=== PATIENT | male | born 1955 | race Caucasian/White ===

== ENCOUNTER 2021-07-06 10:23 | Day surgery (SDC) | payer MEDICARE, OTHER ==
[~2021-07-06] VITALS: Ht 175.3 cm; Wt 86.7 kg
[~2021-07-06 10:23] MED LIST: AMLO5 PO; Aspirin EC81 MG; CHLO25B; Crestor20 MG; EPCLUSA 400 MG1 EAC1; Flonase 0.05% N16 GM; LORZONE375 MG; LOSA50; MONT10T; PERCOCET 10-321 EAC1; Primalev 5-3001 EACH; TESTOSTERO200 MG/1 M
--- NOTE | 2021-07-06 11:56 | NUR ---
07/06/21 1156 Taco Asif BUPIVACAINE 0.5% 150 MLS MIXED W/ EPI 0.15 ML PER ORDER TO MAKE BUPIVACAINE 0.5% 1:200,000 FOR INJECTION AT OPSITE BY DR. JETER. 30 MLS INJECTED.
--- NOTE | 2021-07-06 14:42 | NUR ---
07/06/21 1442 Keri Villar PERCOCET 5/325MG PO GIVEN PER DR ORDERS AT 1350.
== END 2021-07-06 14:40 | disposition home or self-care (01) ==
LOC: ORSCSDS 10:23
PROVIDERS: Podiatrist Foot & Ankle Surgery
PROC: 0SGP04Z Fusion of Right Toe Phalangeal Joint with Internal Fixation Device, Open Approach (ICD-10-PCS; principal; 2021-07-06 11:30)
PROC: 0QSN04Z Reposition Right Metatarsal with Internal Fixation Device, Open Approach (ICD-10-PCS; principal; 2021-07-06 11:30)
DX: M19.071 Primary osteoarthritis, right ankle and foot (principal); M20.5X1 Other deformities of toe(s) (acquired), right foot; S93.104A Unspecified dislocation of right toe(s), initial encounter; M20.21 Hallux rigidus, right foot; I10 Essential (primary) hypertension; Z79.899 Other long term (current) drug therapy; Z79.82 Long term (current) use of aspirin
CPT/HCPCS: A9270; C1713; J0171; J0690; J1100; J2250; J2405; J2704; J3010; J7120

== ENCOUNTER → 2021-12-03 | Outpatient (CLI) | payer MEDICARE, OTHER ==
[2021-12-08 05:10] LABS: HSV-1 DNA Negative (Negative); HSV-2 DNA Negative (Negative)
== END | disposition home or self-care (01) ==
LOC: LAB SHORT 10:00
PROVIDERS: Physician Assistant Medical
DX: Z08 Encounter for follow-up examination after completed treatment for malignant neoplasm (principal); D22.5 Melanocytic nevi of trunk; D48.5 Neoplasm of uncertain behavior of skin; R21 Rash and other nonspecific skin eruption; L57.8 Other skin changes due to chronic exposure to nonionizing radiation; L85.3 Xerosis cutis; Z85.828 Personal history of other malignant neoplasm of skin; Z86.007 Personal history of in-situ neoplasm of skin
CPT/HCPCS: 87529; 87798

== ENCOUNTER 2022-10-15 06:06 | Day surgery (SDC) | payer MEDICARE, OTHER ==
[~2022-10-15] VITALS: Ht 172.7 cm; Wt 91.2 kg
--- NOTE | 2022-10-15 08:56 | NUR ---
10/15/22 0856 Taco Asif 30MLS ROPIVICAINE 0.5% PLAIN MIXED WITH 0.15ML OF EPI 1MG/ML TO CREATE A SOLUTION OF ROPIVIVAINE 0.5% WITH EPI 1:200,000
== END 2022-10-15 09:12 | disposition home or self-care (01) ==
LOC: ORSCSDS 06:06
PROVIDERS: Podiatrist Foot & Ankle Surgery
PROC: 0QTN0ZZ Resection of Right Metatarsal, Open Approach (ICD-10-PCS; principal; 2022-10-15 07:30)
DX: M77.41 Metatarsalgia, right foot (principal); S93.331D Other subluxation of right foot, subsequent encounter; M79.671 Pain in right foot; I10 Essential (primary) hypertension; E78.5 Hyperlipidemia, unspecified; Z79.899 Other long term (current) drug therapy; B19.20 Unspecified viral hepatitis C without hepatic coma; Z79.82 Long term (current) use of aspirin
CPT/HCPCS: J0171; J0690; J1100; J2250; J2405; J2704; J2795; J3010; J7120